=== PATIENT | female | born 1965 | race Two or more races ===

== ENCOUNTER 2022-02-01 15:31 | Emergency (ER) | payer SELFPAY ==
[~2022-02-01] VITALS: Ht 162.6 cm; Wt 81.0 kg
[2022-02-01] MEDS ORDERED: CYCL-837 PO (20:06)
[2022-02-01] MEDS ORDERED: ACET-1158 PO (20:06)
[2022-02-01 22:35] VITALS: BP 171/80
== END 2022-02-01 22:53 | disposition short-term general hospital (02) ==
LOC: ER 15:31
DX: S16.1XXA Strain of muscle, fascia and tendon at neck level, initial encounter (principal); R51.9 Headache, unspecified; I63.9 Cerebral infarction, unspecified; V43.52XA Car driver injured in collision with other type car in traffic accident, initial encounter; Y93.89 Activity, other specified; Y92.410 Unspecified street and highway as the place of occurrence of the external cause; Y99.8 Other external cause status
CPT/HCPCS: 70450; 72125

== ENCOUNTER 2024-08-03 07:41 | Day surgery (SDC) | payer MEDICAID ==
[2024-07-31 11:52] LABS: Basophils # (auto) 0 10 ^3/uL (0-0.2); Basophils % (auto) 0.4 % (0.0-2.0); Eosinophils # (auto) 0.2 10 ^3/uL (0-0.8); Eosinophils % (auto) 2.5 % (0.0-7.0); Hematocrit 37.2 % (36.0-46.0); Hemoglobin 12.8 g/dL (12.2-16.2); Lymphocytes # (auto) 2.4 10 ^3/uL (0.4-5.4); Lymphocytes % (auto) 33.3 % (10.0-50.0); Mean Corpuscular Hemoglobin 30.2 pg (28.0-32.0); Mean Corpuscular Hgb Conc. 34.5 g/dL (32.0-36.0); Mean Corpuscular Volume 87.6 fL (80.0-100.0); Monocytes # (auto) 0.3 10 ^3/uL (0-1.3); Monocytes % (auto) 4.5 % (0.0-12.0); Neutrophils # (auto) 4.3 10 ^3/uL (1.6-8.6); Neutrophils % (auto) 59.3 % (37.0-80.0); Platelet Count (auto) 272 10^3/uL (140-450); Red Blood Cells 4.25 10^6/uL (4.0-5.20); Red Cell Distribution Width 12.9 % (11.8-14.3); White Blood Cell 7.3 10^3/uL (4.4-10.8)
[2024-07-31 12:08] LABS: INR 0.93 (0.9-1.15); Partial Thromboplastin Time 26.6 SEC (24.5-34.5); Prothrombin Time 9.9 sec (9.3-11.8)
[2024-07-31 12:28] LABS: Alanine Aminotransferase 15 U/L (7-40); Albumin 4.3 g/dL (3.2-4.8); Anion Gap 7 (5-15); Aspartate Aminotransferase 15 U/L (13-40); BUN/Creatinine Ratio 18.5 (10.0-20.0); Blood Urea Nitrogen 10 mg/dL (9-23); Calcium 9.4 mg/dL (8.7-10.4); Carbon Dioxide 29 mmol/L (20-31); Chloride 107 mmol/L (98-107); Potassium 3.7 mmol/L (3.5-5.1); Sodium 143 mmol/L (136-145); Total Protein 6.9 g/dL (5.7-8.2)
[2024-07-31 12:29] LABS: Bilirubin, Total 0.3 mg/dL (0.2-1.0)
[2024-07-31 12:31] LABS: Alkaline Phosphatase 134 U/L (46-116); Glucose 110 mg/dL (74-106)
[2024-08-03] MEDS: MIDAZOLAM HCL 2MG/2ML 2ml VIAL (1mg/ml) ONE (12:00)
[2024-08-03] MEDS: fentaNYL CITRATE 100 MCG/2 ML VL ONE (12:00)
[2024-08-03 12:25] VITALS: PULSE 67; RESP 12; TEMP 99.1; O2SAT 97
--- NOTE | 2024-08-03 12:27 | DVHNC2 ---
Procedure - DATE OF PROCEDURE: August 03, 2024 SURGEON: MAGGIE SILVA MD REFERRING PROVIDER: Dr Deb SANTIAGO PROCEDURE PERFORMED: 1. Colonoscopy with moderate sedation 2. Colonoscopy with cold biopsy polypectomy PRE-PROCEDURE DIAGNOSIS: 1. Colon cancer screening 2. Rectal bleeding POST-PROCEDURE DIAGNOSIS: 1. External hemorrhoids 2. Four small colon polyps INDICATIONS FOR PROCEDURE: The patient is a 59 year female who presents for outpatient colonoscopy for rectal bleeding, hemorrhoids and colon cancer screening. MEDICATIONS USED: 4 mg of Versed IV and 100 mcg fentanyl IV given in incremental doses DETAILS OF THE PROCEDURE: Informed consent was obtained after risks, benefits, and alternatives, were discussed at length with the patient. The patient gave consent to the procedure as well as the medication used for sedation. The patient was placed in the left lateral decubitus position. Digital rectal exam showed i external hemorrhoids. An Olympus variable torsion pediatric colonoscope was inserted into the rectum and advanced to the cecum. The cecum was identified by the ileocecal valve and the appendiceal orifice. The scope was then withdrawn. The prep was good with only small amounts of liquid stool. There were no large polyps masses, strictures, or arteriovenous malformations. 6 minutes of withdrawal time was noted. The patient had four small cecal polyps room completely with cold biopsy polypectom. Retroflexion showed no abnormalities. The patient tolerated the procedure well. [place] BOWEL PREP SCORE: 9 COLONOSCOPY START TIME: 1210 CECUM TIME: 1212 COLONOSCOPY END TIME: 1222 IMPRESSION: 1. External hemorrhoids likely cause of bleeding. 2. Four small cecal polyps removed with biopsy forceps RECOMMENDATIONS: 1. Follow up in GI clinic for procedure results 2. High-fiber diet 3. Repeat colonoscopy in three years unless otherwise indicated 4. Medical management of the hemorrhoids 5. Consider surgical referral if symptoms persist or worsen I WOULD LIKE TO THANK DR. Boyd FOR THIS REFERRAL MAGGIE SILVA MD Aug 03, 2024 12:27
[2024-08-03 12:55] VITALS: BP 126/71; PULSE 69; RESP 16; O2SAT 99
== END 2024-08-03 13:00 | disposition home or self-care (01) ==
LOC: GI 07:41
PROVIDERS: ATTEND Specialist
DX: K62.5 Hemorrhage of anus and rectum (principal); D12.0 Benign neoplasm of cecum; K64.4 Residual hemorrhoidal skin tags; I10 Essential (primary) hypertension; E11.9 Type 2 diabetes mellitus without complications; Z98.41 Cataract extraction status, right eye; Z98.42 Cataract extraction status, left eye; Z98.890 Other specified postprocedural states; Z95.5 Presence of coronary angioplasty implant and graft; Z79.899 Other long term (current) drug therapy
CPT/HCPCS: 36415; 45380; 80053; 85025; 85610; 85730; 88305; J2250; J3010; 99152